=== PATIENT | female | born 1970 | race Caucasian/White ===

== ENCOUNTER 2022-07-12 11:51 | Emergency (ER) | payer MEDICAID, SELFPAY ==
[2022-07-12 11:53] VITALS: BP 143/76; PULSE 92; RESP 14; TEMP 36.6; O2SAT 98; BMI 22.6
--- NOTE | 2022-07-12 12:08 | RAD_ITS ---
STUDY: X-RAY - RIGHT KNEE REASON FOR EXAM: Female, 52 years old. Injury TECHNIQUE: 2 view(s) of the knee. COMPARISON: None. FINDINGS: There is demineralization of the visualized distal femur. There is demineralization of the tibia and fibula. Normal proximal tibiofibular articulation. There is no demonstrated fracture. There is total knee replacement. Alignment is near-anatomic. There is anterior soft tissue injury. There is air in the joint space. RAD/Knee 1 or 2 Views IMPRESSION: Knee replacement. Soft tissue injury. Air in the joint space suggesting penetrating injury. Electronically Signed: Geronimo Ramirez MD at 12:37 EST ,
--- NOTE | 2022-07-12 12:38 | EDS_ITS ---
HPI HPI - Fall History of Present Illness Chief Complaint: Lower Extremity Injury Informant: patient Occured/Mechanism Occurred: Today Mechanism/Context: Yes same level fall and Yes slip Pain/Injury Pain Location: head and lower extremity (Right knee) Quality of Pain: Aching Worsened by: Movement Relieved by: Nothing Associated Symptoms Associated Symptoms: Positive for Loss of function and Inability to ambulate; Negative for Parasthesias or Loss of consciousness Narrative Narrative: She presents after a fall that occurred today. Patient slipped on the ice and fell. Patient injured her right knee. Patient has had prior surgery on her right knee. Patient states that the incision came open when she fell. Patient states she is unable to move her right knee due to the pain. Patient states that her knee surgery was done in [place] by Dr. Stallings on 04/16/2022. Patient also fell and hit the back of her head. Patient denies any loss of consciousness. Patient denies any paresthesias or weakness. Patient denies any other injuries. PFSH PFS Medical History no medical history no medical history Allergy/AdvReac Type Severity Reaction Status Date / Time morphine AdvReac NEEDS Verified 07/12/22 11:52 FOLLOW-UP Surgical History (Updated 07/12/22 @ 12:[address] Geo Gagnon, DO) S/P tendon repair Social History Smoking Status: Unknown if ever smoked ROS ROS ED Constitutional Constitutional ED: Denies chills or fever(s) Eyes Eyes: Denies blurry vision or change in vision ENT ENT ED: Denies rhinorrhea or sore throat Cardiovascular Cardiovascular: Denies chest pain or palpitations Respiratory/Chest Respiratory/Chest: Denies cough or dyspnea Gastrointestinal Gastrointestinal: Denies nausea or vomiting Genitourinary Genitourinary ED: Denies dysuria or hematuria Musculoskeletal Musculoskeletal: Denies back pain or neck pain Integumentary Denies abscess or rash Neurologic Neurologic: Reports headache(s); Denies weakness Allergic/Immunologic Allergic/Immunologic ED: Denies mouth swelling or urticaria EXAM Physical Exam Const Vital Signs: 07/12/22 11:53 07/12/22 13:33 07/12/22 15:00 Temperature 98 F Temperature Source Temporal Pulse Rate 92 85 74 Respiratory Rate 14 14 12 Blood Pressure 143/76 H 109/82 H 111/79 Blood Pressure Mean 98 91 89 Pulse Ox 98 98 96 Oxygen Delivery Method Room Air Room Air Room Air 07/12/22 17:02 Temperature Temperature Source Pulse Rate 81 Respiratory Rate 12 Blood Pressure 120/71 Blood Pressure Mean 87 Pulse Ox 96 Oxygen Delivery Method Room Air Positive well nourished and well developed General Appearance ED: well developed and NAD HEENT MANUEL Narrative: There is a 5 mm full-thickness linear laceration of the occipital scalp. There is minimal gapping of the wound margins. There is no active bleeding. There is no bony crepitance or step-off. trauma Eyes PERRL and EOMs intact bilaterally Neck full ROM and supple Extremity Extremity Narrative: There is an open wound over the anterior aspect of the right knee. There is tenderness to palpation over the right knee. There is no obvious deformity. There is mild bleeding. There does appear to be rupture of the patella tendon. There are no foreign bodies noted. Range of motion was limited in all motions of the right knee secondary to pain. Sensation was intact to light touch bilaterally in the lower extremities. There is no calf tenderness. Neuro oriented x3, CN's II-XII intact bilaterally, moves all extremities, no focal motor deficits and no sensory deficits noted Ollie Coma Scale: document GCS findings Spontaneous Obeys Commands Oriented 15 Sensorium / Orientation: alert Motor Exam: strength abnormal extension (Patient is unable to actively extend her right knee.) Psych mental status grossly normal and thought process normal Mood & Affect: anxious MDM MDM MDM Narrative Medical decision making narrative: Patient was advised of the need for repair of the open wound. Patient requested conscious sedation for this. However, I explained to the patient that this would not be feasible in the emergency department as she would require more sedation than we are capable of providing. Patient was advised that we will anesthetize the area locally and close the skin. Patient will be placed in a knee immobilizer. I do not feel that scalp laceration needs to be repaired at this time since it is only 5 mm in length. Patient is agreeable with this. We will obtain x-rays of the right knee to rule out open fracture and foreign body. I do not feel CT scan of the brain is necessary at this time since she has normal neurologic exam and did not have any loss of consciousness. Radiography Diagnostic Testing: Clinical Impression(s) from Imaging Studies Knee X-Ray 07/12/22 12:08 IMPRESSION: Knee replacement. Soft tissue injury. Air in the joint space suggesting penetrating injury. Electronically Signed: Geronimo Ramirez MD at 12:37 EST , X-rays of the right knee were reviewed. There are 2 views. On my independent interpretation, there is no acute fracture or loosening of the prosthesis. Th ere is soft tissue air. Radiologist also interpreted the x-ray and agrees. He also noted there is air in the joint space. Treatment and Re-Evaluation Narrative: Patient was given a tetanus booster here. Patient was given a dose of Ancef. Patient was given a [place]. The right knee wound was cleaned and irrigated with copious amounts normal saline. The skin was anesthetized with 1% plain lidocaine locally. The wound was closed with 10 simple interrupted #3-0 nylon sutures under sterile technique. Patient tolerated the procedure well. Bacitracin dressing was applied. Knee immobilizer was applied. On reevaluation, the patient was starting to have periorbital ecchymosis. Because of this, CT scan of the brain was obtained to check for basilar skull fracture, and intracranial bleeding. Case was discussed with Dr. Guadarrama from [facility]. He requested the patient be transferred to [facility]. He also requested basic preop laboratories be obtained. These were ordered. Care of the patient was turned over to the oncoming physician pending CT scan of the brain. If the CT scan of the brain shows a basilar skull fracture, patient will be transferred to [facility] for trauma. Otherwise, patient was transferred to [facility] for orthopedic care. Discharge Plan Triage Chief Complaint: Lower Extremity Injury ED Provider: Geo Gagnon Dx/Rx/DC Orders Clinical Impression: Patellar tendon rupture, Laceration of right knee Primary Care Provider: JACOBY VALLADARES Referrals: JACOBY VALLADARES [Other] Disposition Disposition: Acute Care Hospital Discharge Location: Other [facility]
[2022-07-12] MEDS: Lidocaine 1% (20 ml mdv) 20 ML Vial INFILT (13:14)
[2022-07-12] MEDS: HYDROcodone Bitartrate/Apap 5/325 Tablet PO (13:32)
[2022-07-12 13:33] VITALS: BP 109/82; PULSE 85; RESP 14; O2SAT 98
[2022-07-12 15:00] VITALS: BP 111/79; PULSE 74; RESP 12; O2SAT 96
--- NOTE | 2022-07-12 16:59 | CT_ITS ---
INDICATION: Head injury EXAMINATION: CT BRAIN - CT Head or Brain W/O Contrast Injection TECHNIQUE: Multiple axial images were obtained of the head without intravenous contrast. A radiation dose optimization technique was used for this scan. IV Contrast dosage and agent: None. RADIATION DOSAGE (If Supplied By Facility): CTDIvol = ( 44.99 ) mGy, DLP = ( 745.49 ) mGycm COMPARISON: No relevant prior examinations for comparison FINDINGS: HEMISPHERES: 1. The cerebral parenchyma, ventricular system, subarachnoid spaces have normal configuration and density. There is a normal gyral pattern. There is normal pfeiffer/white differentiation. No midline shift.. 2. The hemispheric white matter has normal appearance. 3. No intraparenchymal mass, hemorrhage, or acute territorial infarct. CEREBELLUM - BRAINSTEM: The cerebellum, brainstem, basilar and suprasellar cisterns have normal appearance. No Chiari malformation. PITUITARY: Infundibulum and pituitary have normal configuration. Midline structures appear normal. CSF SPACES: Appropriate for age. No hydrocephalus. Basal cisterns are patent. VESSELS: 1. Carotid vascular calcifications bilaterally. 2. No hyperdense vascular signs noted.. ORBITS AND PARANASAL SINUSES: 1. Normal appearance of the bony orbits. Normal appearance of the globes and retrobulbar soft tissues.. Preseptal soft tissue swelling is present bilaterally. 2. Paranasal sinuses are clear. BONY ELEMENTS: Bony elements of the cranial vault, facial skeleton and skull base have normal appearance. SCALP AND SOFT TISSUES: Normal appearance of the soft tissues of the scalp and the visualized face OTHER: None ASPECTS Score for Acute Strokes: 10 CT/Brain/Head without Contrast IMPRESSION: 1. Normal CT examination of the brain 2. No intracranial evidence of acute traumatic injury. 3. No intracranial mass, hemorrhage or acute territorial infarct. 4. Preseptal soft tissue swelling/bruising without intraorbital extension, no fractures or radiopaque foreign bodies. Normal appearance of the globes and retrobulbar soft tissue planes. 5. No radiographically significant sinus disease.. Electronically Signed: Roman Mckee MD at 17:47 EST ,
[2022-07-12 17:02] VITALS: BP 120/71; PULSE 81; RESP 12; O2SAT 96
--- NOTE | 2022-07-12 17:33 | ED.RN ---
PATIENT ACCEPTED TO [facility], [id number], ACCEPTING DR. GTZ, ETA FOR PHYSICIANS IS 2030
[2022-07-12] MEDS: Cefazolin 1 GM/50 ML BAG IV (17:36)
[2022-07-12 17:44] LABS: Absolute Lymphocyte Count 1.41 X10^3/uL (0.83-4.51); Absolute Neutrophil Count 10.5 X10^3/uL (2.0-7.7); Basophil# 0.04 X10^3/uL; Basophil% 0.3 % (0-1); Eosinophil# 0.01 X10^3/uL; Eosinophils% 0.1 % (0-5); Hematocrit 40.6 % (37-47); Hemoglobin 13.6 g/dL (12.0-15.0); Lymphocyte # 1.41 X10^3/ul (0.83-4.51); Lymphocyte % 11.4 % (19-41); Mean Corp Hgb Conc 33.5 g/dL (32-36); Mean Corpuscular Hgb 30.9 pg (27.0-32.0); Mean Corpuscular Volume 92.3 fL (81-99); Mean Platelet Vol. 8.6 fl (6.2-12.0); Monocyte# 0.43 X10^3/uL; Monocyte% 3.5 % (0-10); NRBC Flagged by Analyzer 0 % (0-5); Neutrophil # 10.47 X10^3/uL (2.7-7.7); Neutrophil % 84.5 % (47-70); Platelet Count 285 K/mm3 (150-450); RBC Distribution Width CV 13.2 % (11.6-14.6); RBC Distribution Width SD 44.8 fl (35.1-43.9); White Blood Count 12.4 K/mm3 (4.4-11.0)
[2022-07-12] MEDS: HYDROmorphone 1 MG/ML Syringe 0.5 MG IV (17:46)
[2022-07-12] MEDS: Ondansetron 4 MG/2 ML Vial IV (17:46)
[2022-07-12 17:59] LABS: Partial Thromboplast Time 30.6 Seconds (24.1-36.2)
[2022-07-12 18:03] LABS: ALB/GLOB Ratio 1.1 RATIO (0.9-2.4); AST(SGOT) 30 U/L (15-37); Alanine Aminotransfer ALT/SGPT 21 U/L (13-56); Alkaline Phosphatase 67 U/L (45-117); Anion Gap 6 (5-15); BUN 9 mg/dL (7-18); Calcium,Total 9.4 mg/dL (8.5-10.1); Chloride 109 mmol/L (98-107); EST Glomerular Filtration Rate 112 mL/min (>60); Est Glom Filt Rate - Afr Amer 136 mL/min (>60); Estimated Creatinine Clearance 103.84 ml/min; Globulin 3.7 g/dL (2.2-4.2); Glucose 120 mg/dL (74-106); Potassium 3.8 mmol/L (3.5-5.1); Protein, Total 7.7 g/dL (6.4-8.2); Sodium Level 140 mmol/L (136-145)
[2022-07-12 18:51] VITALS: BP 109/81; PULSE 69; RESP 14; O2SAT 97
== END 2022-07-12 18:57 | disposition short-term general hospital (02) ==
PROVIDERS: Emergency Provider Emergency Medicine; Visit Provider Emergency Medicine
DX: S81.011A Laceration without foreign body, right knee, initial encounter (principal); S76.111A Strain of right quadriceps muscle, fascia and tendon, initial encounter; W18.30XA Fall on same level, unspecified, initial encounter
CPT/HCPCS: 12001; 70450; 73560; 80053; 85025; 85610; 85730; 96365; 96375; 99285; J7050; A4216; J2405